=== PATIENT | female | born 2000 | race Caucasian/White ===

== ENCOUNTER → 2019-07-21 | Outpatient (CLI) | payer OTHER ==
[~2019-07-21] MED LIST: Cyclobenzaprine5 MG PO; HYDPAM25 PO; IBUP800 PO; LAMO100 PO; LATUDA40 MG PO; Naprosyn500 MG PO; OMEP40CA12 PO; PNV 29-1 TABLE1 EACH PO; Percocet 5-3251 EACH PO; TUMS500 MG PO
== END | disposition home or self-care (01) ==
LOC: LAB SHORT 18:00 → LAB 18:00
DX: Z34.83 Encounter for supervision of other normal pregnancy, third trimester (principal); P05.10 Newborn small for gestational age, unspecified weight
CPT/HCPCS: 87086

== ENCOUNTER 2019-07-30 17:28 | Inpatient (IN) | payer OTHER ==
[~2019-07-30] VITALS: Ht 157.5 cm; Wt 100.5 kg
[~2019-07-30 17:28] MED LIST changes: -IBUP800 PO; -PNV 29-1 TABLE1 EACH PO; -Percocet 5-3251 EACH PO; -TUMS500 MG PO
[2019-07-30] MEDS ORDERED: PNV 29-1 TABLE1 EACH PO (18:13)
[2019-07-30] MEDS ORDERED: TUMS500 MG PO (18:14)
[2019-07-30 18:24] LABS: BASOPHILS ABSOLUTE AUTO 0.03 K/mm3 (0.00-0.23); BASOPHILS PERCENT AUTO 0 % (0-2); EOSINOPHILS PERCENT AUTO 0 % (0-6); Hematocrit 30.3 % (33.0-51.0); Hemoglobin 9.8 g/dL (11.5-16.0); IMMATURE GRAN ABSOLUTE AUTO 0.02 K/mm3 (0.00-0.10); IMMATURE GRAN PERCENT AUTO 0 % (0-1); LYMPHOCYTES ABSOLUTE AUTO 1.16 K/mm3 (0.84-5.20); LYMPHOCYTES PERCENT AUTO 13 % (21-46); MONOCYTES ABSOLUTE AUTO 0.54 K/mm3 (0.16-1.47); MONOCYTES PERCENT AUTO 6 % (4-13); Mean Corpuscular HGB 28.4 pg (26.0-34.0); Mean Corpuscular HGB Conc 32.3 g/dL (31.5-36.5); Mean Corpuscular Volume 88 fL (80-100); Mean Platelet Volume 10.1 fL (9.1-12.4); NEUTROPHILS ABSOLUTE AUTO 7.18 K/mm3 (1.96-9.15); NEUTROPHILS PERCENT AUTO 81 % (41-73); Platelet Count 237 K/mm3 (150-400); RDW Coefficient Variation 14.7 % (11.7-14.2); RDW Standard Deviation 46.6 fL (35.1-46.3); Red Blood Cell Count 3.45 M/mm3 (3.80-5.20); White Blood Cell Count 8.93 K/mm3 (4.00-11.30)
--- NOTE | 2019-07-31 00:06 | NUR ---
PT C/O DISCOMFORT FROM IV IN HER HAND. COBAN IS REMOVED AND IV SITE IS WNL. PT DECLINES OFFER TO CHANGE IV SITES. IV SITE ON UPPER L ARM DRESSING REPLACED.
[2019-07-31 20:50] LABS: PCO2 Cord - Arterial 62.1 mmHg (40-50); PCO2 Cord - Venous 51.7 mmHg (40-50); PO2 Cord - Arterial < 13 mmHg (16-20); PO2 Cord - Venous 23.6 mmHg (28-32); pH Cord - Arterial 7.25 (7.28-7.35); pH Umbilical Cord - Venous 7.29 (7.26-7.35)
--- NOTE | 2019-07-31 20:54 | NUR ---
07/31/192053 Adali Saeed PT ARRIVED TO OR WITH EPIDURAL IN PLACE. EPIDURAL WAS DOSED PER DR SR. PT STILL NOTED SHAPRNESS WITH TESTING AND THUS CASE WAS CONVERED TO A GENERAL. PT ARRIVAL WITH A GUTIERREZ CATH IN PLACE. 2032-BABY GIRL BORN. SEE OB RN'S NURSES NOTES REGARDING SCORES. CORD BLOOD WITH SENT WITH KARTIK LINDSAY RN. CORD SEGMENT SENT ON ICE WITH MEGHA VAZQUEZ.
[2019-08-01 05:24] LABS: Hematocrit 30.2 % (33.0-51.0); Hemoglobin 9.7 g/dL (11.5-16.0); Mean Corpuscular HGB 28.4 pg (26.0-34.0); Mean Corpuscular HGB Conc 32.1 g/dL (31.5-36.5); Mean Corpuscular Volume 88 fL (80-100); Mean Platelet Volume 10.4 fL (9.1-12.4); Platelet Count 241 K/mm3 (150-400); RDW Coefficient Variation 14.6 % (11.7-14.2); Red Blood Cell Count 3.42 M/mm3 (3.80-5.20); White Blood Cell Count 23.29 K/mm3 (4.00-11.30)
--- NOTE | 2019-08-01 12:11 | NUR ---
SOCIAL HISTORY WHEN INTRODUCED TO THE VISITORS IN PTS ROOMS BREANNA IS INTRODUCED THE FATHER OF THE BABY, RAFAL THE FEMALE IN THE ROOM IS INTRODUCE A SISTER TO THE PT. RAFAL IS LEGALLY TO BREANNA. WHEN ASKING PT IF SHE IS LEGALLY TO BREANNA SHE STATES THAT SHE IS NOT. THE 9 MONTH INFANT OF TONJA IS ALSO INTRODUCE TO THE PATIENTS A SISTER. WHEN ALL VISITORS HAVE LEFT THE ROOM I ASKED THE PT IF SHE FELT SAFE IN THIS RELATIONSHIP. PATIENT STATES THAT SHE DOES FEEL SAFE AND FEELS THOUGH SHE COULD LEAVE AT ANY POINT IF SHE WANTED TO. PT STATES FEELING ANXIOUS AND STRESSED SHE DOES NOT LIKE BEING IN THE HOSPITAL. PT STATES THAT SHE TAKES BREAKTHROUGH ANXIETY MEDICATION PRN AT HOME. WILL CALL MD TO OBTAIN ORDERS FOR ANXIETY MEDICATION
--- NOTE | 2019-08-01 15:59 | NUR ---
All trash and dirty linen removed from room at this time. fresh ice water.
[2019-08-02] MEDS ORDERED: Percocet 5-3251 EACH PO (08:59)
[2019-08-02] MEDS ORDERED: IBUP800 PO (08:59)
--- NOTE | 2019-08-02 11:30 | NUR ---
DISCHARGE DISCHARGE TEACHING COMPLETED WITH PATIENT AND BOTH SIGNIFICANT OTHERS, ALL VERBALIZE UNDERSTANDING AND HAVE NO FURTHER QUESTIONS OR CONCERNS. PT DISCHARGED TO HOME AT 1139
== END 2019-08-02 11:35 | disposition home or self-care (01) | DRG 788 ==
LOC: BC 17:28 → OBS 17:28 → BC 17:42
PROVIDERS: Obstetrics & Gynecology; ADMIT Family Medicine
PROC: 3E0P7VZ Introduction of Hormone into Female Reproductive, Via Natural or Artificial Opening (ICD-10-PCS; 2019-07-30)
PROC: 10H07YZ Insertion of Other Device into Products of Conception, Via Natural or Artificial Opening (ICD-10-PCS; 2019-07-31)
PROC: 10D00Z1 Extraction of Products of Conception, Low, Open Approach (ICD-10-PCS; principal; 2019-07-31 19:00)
PROC: 3E0234Z Introduction of Serum, Toxoid and Vaccine into Muscle, Percutaneous Approach (ICD-10-PCS; 2019-08-02)
DX: O48.0 Post-term pregnancy (principal); O76 Abnormality in fetal heart rate and rhythm complicating labor and delivery; O62.0 Primary inadequate contractions; Z3A.40 40 weeks gestation of pregnancy; Z37.0 Single live birth; O77.0 Labor and delivery complicated by meconium in amniotic fluid; Z23 Encounter for immunization
CPT/HCPCS: 36415; 51702; 82803; 85025; 85027; 88307; 90471; J0330; J0690; J1100; J1885; J2001; J2210; J2370; J2405; J2590; J2704; J2710; J2765; J3010; J3105; J7120

== ENCOUNTER → 2024-11-16 | Outpatient (CLI) | payer OTHER ==
[~2024-11-16] MED LIST changes: +IBUP800 PO; +PNV 29-1 TABLE1 EACH PO; +Percocet 5-3251 EACH PO; +TUMS500 MG PO
[2024-11-16 09:52] LABS: Source, Urine Clean Catch
[2024-11-16 13:21] LABS: Appearance, Urine Hazy (Clear); Bilirubin, Urine Neg (Neg); Blood, Urine Neg (Neg); Color, Urine Yellow (P-Yellow); Glucose Qualitative, Urine Neg (Neg); Ketones, Urine Neg (Neg); Leukocyte Esterase, Urine 2+ (Neg); Nitrite, Urine Neg (Neg); Protein, Urine 1+ (Neg); Urobilinogen, Urine NORM (Normal)
[2024-11-16 13:37] LABS: Mucus Light (0-Heavy); Squamous Epithelial Cells Many /hpf (Few)
[2024-11-16 13:38] LABS: Amorphous Light (0-Heavy); Bacteria Many /hpf; Red Blood Cells, Urine 0-2 /hpf (0-2); White Blood Cells, Urine 25-50 /hpf (0-5)
== END ==
LOC: LAB SHORT 09:50 → LAB 09:50
PROVIDERS: Advanced Practice Midwife
DX: Z87.440 Personal history of urinary (tract) infections (principal)
CPT/HCPCS: 81001; 87077; 87086; 87186

== ENCOUNTER → 2024-11-18 | Outpatient (CLI) | payer OTHER | END | disposition home or self-care (01) | LOC: LAB 10:22 → LAB SHORT 10:22 | DX: O09.93 Supervision of high risk pregnancy, unspecified, third trimester (principal) | CPT/HCPCS: 87081; 87150 ==

== ENCOUNTER 2024-11-25 14:09 | Inpatient (IN) | payer OTHER ==
[~2024-11-25] VITALS: Ht 157.5 cm; Wt 131.8 kg
[2024-11-25] VITALS (39 sets, daily range): BP systolic 127–189; BP diastolic 63–114
[2024-11-25 14:54] LABS: BASOPHILS ABSOLUTE AUTO 0.04 K/mm3 (0.00-0.23); BASOPHILS PERCENT AUTO 1 % (0-2); EOSINOPHILS ABSOLUTE AUTO 0.02 K/mm3 (0.00-0.68); EOSINOPHILS PERCENT AUTO 0 % (0-6); Hematocrit 27.1 % (33.0-51.0); Hemoglobin 8.9 g/dL (11.5-16.0); IMMATURE GRAN ABSOLUTE AUTO 0.04 K/mm3 (0.00-0.10); IMMATURE GRAN PERCENT AUTO 1 % (0-1); LYMPHOCYTES ABSOLUTE AUTO 1.27 K/mm3 (0.84-5.20); LYMPHOCYTES PERCENT AUTO 15 % (21-46); MONOCYTES ABSOLUTE AUTO 0.52 K/mm3 (0.16-1.47); MONOCYTES PERCENT AUTO 6 % (4-13); Mean Corpuscular HGB 26.7 pg (26.0-34.0); Mean Corpuscular HGB Conc 32.8 g/dL (31.5-36.5); Mean Corpuscular Volume 81 fL (80-100); Mean Platelet Volume 11.3 fL (9.1-12.4); NEUTROPHILS ABSOLUTE AUTO 6.69 K/mm3 (1.96-9.15); NEUTROPHILS PERCENT AUTO 78 % (41-73); Platelet Count 218 K/mm3 (150-400); RDW Coefficient Variation 14.7 % (11.7-14.2); RDW Standard Deviation 42.9 fL (35.1-46.3); Red Blood Cell Count 3.33 M/mm3 (3.80-5.20); White Blood Cell Count 8.58 K/mm3 (4.00-11.30)
[2024-11-25] MEDS ORDERED: Labetalol HCL 5 MG/ML 4ML Injection (Single Dose) ONE (15:09)
[2024-11-25] MEDS ORDERED: CeFAZolin Sodium 3,000 MG in NS 100 ML IV SCH (15:10)
[2024-11-25] MEDS ORDERED: Azithromycin 500 MG in NS 250 ML IV SCH (15:10)
[2024-11-25] MEDS ORDERED: Magnesium Sulf 2 GM/Water 50ML 50 ML IV ONE (15:11)
[2024-11-25] MEDS ORDERED: Magnesium Sulfate 500 ML IV ONE (15:11)
[2024-11-25] MEDS ORDERED: Magnesium Sul 4 GM/Water100 ML 100 ML IV ONE ×2 (15:12→15:15)
[2024-11-25] MEDS ORDERED: Labetalol HCL 5 MG/ML 4ML Injection (Single Dose) IV ONE (15:15)
[2024-11-25] MEDS ORDERED: Calcium Gluconate 0.465 mEq/ml 10 ml Vial IV PRN (15:15)
[2024-11-25] MEDS ORDERED: Magnesium Sulf 2 GM/Water 50ML 50 ML IV SCH (15:15)
[2024-11-25] MEDS ORDERED: Labetalol HCL 5 MG/ML 4ML Injection (Single Dose) IV PRN ×3 (15:15→23:15)
[2024-11-25] MEDS ORDERED: Magnesium Sulfate 500 ML IV SCH (15:15)
[2024-11-25] MEDS ORDERED: Lactated Ringer's 1,000 ML IV SCH ×2 (15:15→17:35)
[2024-11-25 15:16] LABS: Albumin, Blood 2.2 g/dL (3.4-5.0); Albumin/Globulin Ratio 0.6 (0.8-1.8); Bilirubin, Total 0.3 mg/dL (0.1-1.0); Bun/Creatinine Ratio 12.5 (12.0-20.0); Calcium, Blood 8.5 mg/dL (8.5-10.1); Creatinine, Blood 0.56 mg/dL (0.40-1.00); Globulin, Blood 3.9 g/dL (2.2-4.0); Potassium, Blood 3.9 mmol/L (3.5-5.5); Total Protein, Blood 6.1 g/dL (6.4-8.2)
--- NOTE | 2024-11-25 15:16 | NUR ---
OR NOTIFIED OF NEED FOR SURG CREW TO SCRUB AND CIRCULATE, [employer] WILL SEND A CREW AND FIND ANESTHESIA
[2024-11-25] MEDS ORDERED: Citric Acid/Sodium Citrate 30 ML BTL PO SCH (15:25)
[2024-11-25] MEDS ORDERED: Metoclopramide HCl 5MG / ML 2ML Vial IV SCH (15:25)
[2024-11-25] MEDS ORDERED: Metoclopramide HCl 5MG / ML 2ML Vial ONE (15:30)
[2024-11-25] MEDS ORDERED: Citric Acid/Sodium Citrate 30 ML BTL ONE (15:30)
[2024-11-25] MEDS ORDERED: Oxytocin 10 Unit / ML Vial ONE ×2 (15:34→16:31)
[2024-11-25] MEDS ORDERED: FentaNYL Citrate 50 MCG/ML 2 ML Injection ONE (15:37)
[2024-11-25] MEDS ORDERED: [UNRECOGNIZED DRUG - OTHER] EPI ONE (15:40)
[2024-11-25 15:41] LABS: BASOPHILS ABSOLUTE AUTO 0.03 K/mm3 (0.00-0.23); BASOPHILS PERCENT AUTO 0 % (0-2); EOSINOPHILS ABSOLUTE AUTO 0.01 K/mm3 (0.00-0.68); EOSINOPHILS PERCENT AUTO 0 % (0-6); Hematocrit 27.6 % (33.0-51.0); Hemoglobin 9.1 g/dL (11.5-16.0); IMMATURE GRAN ABSOLUTE AUTO 0.04 K/mm3 (0.00-0.10); IMMATURE GRAN PERCENT AUTO 0 % (0-1); LYMPHOCYTES ABSOLUTE AUTO 1.35 K/mm3 (0.84-5.20); LYMPHOCYTES PERCENT AUTO 15 % (21-46); MONOCYTES ABSOLUTE AUTO 0.61 K/mm3 (0.16-1.47); MONOCYTES PERCENT AUTO 7 % (4-13); Mean Corpuscular HGB 27.1 pg (26.0-34.0); Mean Corpuscular Volume 82 fL (80-100); Mean Platelet Volume 11.2 fL (9.1-12.4); NEUTROPHILS ABSOLUTE AUTO 6.87 K/mm3 (1.96-9.15); NEUTROPHILS PERCENT AUTO 77 % (41-73); Platelet Count 205 K/mm3 (150-400); RDW Coefficient Variation 14.8 % (11.7-14.2); RDW Standard Deviation 43.5 fL (35.1-46.3); Red Blood Cell Count 3.36 M/mm3 (3.80-5.20); White Blood Cell Count 8.91 K/mm3 (4.00-11.30)
[2024-11-25] MEDS ORDERED: Ondansetron HCl 2 MG / ML 2ML Vial ONE (15:56)
[2024-11-25] MEDS ORDERED: Tranexamic Acid 100 ML IV ONE (16:02)
[2024-11-25] MEDS ORDERED: Phenylephrine HCl 100 MCG/ML-NS 10MLSYR (1MG/10ML) ONE (16:50)
[2024-11-25 17:06] LABS: PCO2 Cord - Arterial 56.7 mmHg (40-50); PCO2 Cord - Venous 48.3 mmHg (40-50); PO2 Cord - Arterial < 14.0 mmHg (16-20); PO2 Cord - Venous 24.2 mmHg (28-32); pH Cord - Arterial 7.22 (7.28-7.35)
--- NOTE | 2024-11-25 17:17 | NUR ---
11/25/24 1717 Carol Nam BABY A AND BABY B CORD GIVEN TO RT. URINE SAMPLE AND BABY A AND BABY B CORD BLOOD GIVEN TO L & D RN
[2024-11-25 17:18] LABS: PCO2 Cord - Venous 47.9 mmHg (40-50)
[2024-11-25] MEDS ORDERED: Magnesium Hydroxide Conc 10 ML UDC PO PRN (17:35)
[2024-11-25] MEDS ORDERED: Metoclopramide HCl 10 MG Tab PO PRN (17:35)
[2024-11-25] MEDS ORDERED: Simethicone 80 MG Chew PO PRN (17:35)
[2024-11-25] MEDS ORDERED: Promethazine HCl 25 MG Tab PO PRN (17:40)
[2024-11-25] MEDS ORDERED: Lanolin Cream TOP PRN (17:40)
[2024-11-25] MEDS ORDERED: Acetaminophen 500 MG Tab PO PRN (17:40)
[2024-11-25] MEDS ORDERED: OXYTOCIN/RINGER'S LACTATE 500 ML IV SCH (17:40)
[2024-11-25] MEDS ORDERED: Carboprost Tromethamine 250 MCG/ML 1ML Amp IM PRN (17:40)
[2024-11-25] MEDS ORDERED: DiphenhydrAMINE HCL 25 MG Cap PO PRN (17:40)
[2024-11-25] MEDS ORDERED: OxyCODONE HCL 5 MG TAB PO PRN ×2 (17:45→22:40)
[2024-11-25] MEDS ORDERED: Misoprostol 200 MCG Tab PR PRN (17:45)
[2024-11-25] MEDS ORDERED: Ondansetron HCl 2 MG / ML 2ML Vial IV PRN (17:45)
[2024-11-25] MEDS ORDERED: Ketorolac Tromethamine 30mg Vial IV SCH (18:00)
[2024-11-25 20:21] LABS: Source, Urine Foley catheter
[2024-11-25 20:34] LABS: Appearance, Urine Clear (Clear); Bilirubin, Urine Neg (Neg); Blood, Urine Neg (Neg); Color, Urine Yellow (P-Yellow); Glucose Qualitative, Urine Neg (Neg); Ketones, Urine Neg (Neg); Leukocyte Esterase, Urine 1+ (Neg); Nitrite, Urine Neg (Neg); Protein, Urine 1+ (Neg); Urobilinogen, Urine NORM (Normal); pH, Urine 6.5 (5.0-8.0)
[2024-11-25 20:45] LABS: Bacteria Few /hpf; Red Blood Cells, Urine 0-2 /hpf (0-2); Squamous Epithelial Cells Mod /hpf (Few); White Blood Cells, Urine 0-2 /hpf (0-5)
[2024-11-25] MEDS ORDERED: Docusate Sodium 100 MG Cap PO SCH (21:00)
[2024-11-26] VITALS (29 sets, daily range): BP systolic 132–194; BP diastolic 63–105
[2024-11-26] MEDS ORDERED: Ibuprofen 400 MG Tab PO SCH
--- NOTE | 2024-11-26 02:34 | NUR ---
PT STATES SHE WAS MOVING HER ARM WHEN THE BP CUFF WENT OFF. BP REPEATED AND RESULT IS 194/88. WILL REPEAT IN 15 MIN AND FOLLOW PROTOCOL IF REMAINS IN SEVERE RANGE.
--- NOTE | 2024-11-26 05:45 | NUR ---
PT IS UP TO SCN TO VISIT TWIN VIA WC. PT TOLERATES THIS WELL.
[2024-11-26 06:20] LABS: BASOPHILS ABSOLUTE AUTO 0.03 K/mm3 (0.00-0.23); BASOPHILS PERCENT AUTO 0 % (0-2); EOSINOPHILS ABSOLUTE AUTO 0.01 K/mm3 (0.00-0.68); EOSINOPHILS PERCENT AUTO 0 % (0-6); Hematocrit 26.5 % (33.0-51.0); Hemoglobin 8.4 g/dL (11.5-16.0); IMMATURE GRAN ABSOLUTE AUTO 0.05 K/mm3 (0.00-0.10); IMMATURE GRAN PERCENT AUTO 0 % (0-1); LYMPHOCYTES ABSOLUTE AUTO 0.96 K/mm3 (0.84-5.20); LYMPHOCYTES PERCENT AUTO 7 % (21-46); MONOCYTES ABSOLUTE AUTO 0.77 K/mm3 (0.16-1.47); MONOCYTES PERCENT AUTO 5 % (4-13); Mean Corpuscular HGB 25.9 pg (26.0-34.0); Mean Corpuscular HGB Conc 31.7 g/dL (31.5-36.5); Mean Corpuscular Volume 82 fL (80-100); Mean Platelet Volume 11.1 fL (9.1-12.4); NEUTROPHILS PERCENT AUTO 88 % (41-73); Platelet Count 220 K/mm3 (150-400); RDW Coefficient Variation 14.6 % (11.7-14.2); RDW Standard Deviation 42.7 fL (35.1-46.3); Red Blood Cell Count 3.24 M/mm3 (3.80-5.20); White Blood Cell Count 14.62 K/mm3 (4.00-11.30)
--- NOTE | 2024-11-26 07:03 | NUR ---
PT'S SO GOES HOME FOR THE NIGHT AROUND 2100 AND TWIN B IS TAKEN TO NURSERY SO PT CAN SLEEP. PAIN IS MANAGED WITH TORADOL, TYLENOL AND OXYCODONE AND PT TOLERATES REPOSITIONING AND DANGLE, STAND, PIVOT TO TO VISIT TWIN A IN [facility] VERY WELL. PT ATTEMPTS TO BREASTFEED TWIN B, BUT HE DOES NOT LATCH, SO SHE IS ABLE TO EXPRESS UP TO 5ML OF COLOSTRUM AT A TIME FOR FEEDS. PT IS APPROPRIATE WITH HER CARE OF BABY AND CONCERNED ABOUT TWIN A'S PROGRESS IN THE NURSERY. REPORT IS GIVEN TO TALIA MCKEON.
--- NOTE | 2024-11-26 08:30 | NUR ---
CPS NOTE SHY MCDANIELS, CPS WORKER, ASSIGNED TO FAMILY CASE PRIOR TO ARRIVAL AT HOSPITAL HERE TO SEE PT. DID NOT SET UP SAFETY PLAN OR DISCHARGE PLAN WITH PT HE IS NOT CURRENTLY,NEWLY ASSIGNED WORKER FOR THIS /DELIVERY. THERE WILL BE ANOTHER CPS WORKER HERE THIS AM FOR INTAKE AND ASSESSMENT.
--- NOTE | 2024-11-26 08:40 | NUR ---
Magnesium Sulfate restarted at 2gm/hr per MD order for additional 12 hour infusion.
[2024-11-26] MEDS ORDERED: Prenatal Vit/FE Fumarate/FA 1 Tab PO SCH (09:00)
--- NOTE | 2024-11-26 09:47 | NUR ---
CPS NOTE ATUL GASTELUM, CPS SATELLITE MANAGER, HERE TO SEE PT. INTRODUCED HIMSELF AFTER SPEAKING WITH RN ABOUT HX AND PT AND SO BEHAVIOR IN ROOM SINCE ARRIVING ON UNIT.
[2024-11-26] MEDS ORDERED: Labetalol HCL 100 MG TAB PO SCH ×2 (10:45→20:00)
[2024-11-26] MEDS ORDERED: Labetalol HCL 5 MG/ML 4ML Injection (Single Dose) IV ONE (11:50)
--- NOTE | 2024-11-26 14:00 | NUR ---
CPS NOTE ED NIRAV OUT OF ROOM AFTER SPEAKING WITH PT WITH HER WILDLIFE CONSERVATION PROFESSOR PRESENT. ED REPORTED TO STAFF AT NURSES STATION THAT HE WAS GOING TO COURT THIS AFTERNOON AND WOULD BE BACK WITH A PLAN TOMORROW. NO RESTRICTIONS WHILE IN HOSPITAL UNTIL CPS RETURNS WITH SAFETY PLAN AND FUTHER ASSESSMENT TOMORROW.
--- NOTE | 2024-11-26 20:35 | NUR ---
MAGNESIUM SULFATE TURNED OFF AT 2033.
[2024-11-27 01:32] VITALS: BP 140/68
[2024-11-27 03:44] VITALS: BP 146/69
[2024-11-27 07:27] VITALS: BP 138/69
[2024-11-27] MEDS ORDERED: NIFEdipine 30 MG TabCR PO SCH (09:00)
[2024-11-27 11:34] VITALS: BP 137/64
--- NOTE | 2024-11-27 14:48 | NUR ---
1441 ATUL GASTELUM WORKING FOR CHILD WELFARE CAME IN AND REMOVED BOTH TWIN A AND TWIN B FROM PARENTS AND TOOK THEM INTO CUSTODY AT THIS TIME. PARENT'S HAVE A COURT DATE THEY ARE DISCUSSING AT THIS TIME.
[2024-11-27 15:00] VITALS: BP 136/78
--- NOTE | 2024-11-27 15:43 | NUR ---
PT HAD BOTH BABIES REMOVED AT 1400 BY CHILD WELFARE. PT DECIDED TO GO HOME AND BE DISCHARGED. DISCHARGE INSURUCTIONS SIGNED.
== END 2024-11-27 15:36 | disposition home or self-care (01) | DRG 784 ==
LOC: BC 14:09 → OBS 14:09 → BC 15:12
PROVIDERS: ADMIT Obstetrics & Gynecology
PROC: 0UB70ZZ Excision of Bilateral Fallopian Tubes, Open Approach (ICD-10-PCS; 2024-11-25)
PROC: 10D00Z1 Extraction of Products of Conception, Low, Open Approach (ICD-10-PCS; principal; 2024-11-25 15:00)
DX: O34.211 Maternal care for low transverse scar from previous cesarean delivery (principal); N39.0 Urinary tract infection, site not specified; O23.43 Unspecified infection of urinary tract in pregnancy, third trimester; O09.93 Supervision of high risk pregnancy, unspecified, third trimester; O14.14 Severe pre-eclampsia complicating childbirth; Z3A.40 40 weeks gestation of pregnancy; O30.043 Twin pregnancy, dichorionic/diamniotic, third trimester; Z3A.37 37 weeks gestation of pregnancy; Z37.2 Twins, both liveborn; O99.214 Obesity complicating childbirth; E66.01 Morbid (severe) obesity due to excess calories
CPT/HCPCS: 36415; 59025; 80053; 81001; 82570; 82803; 83615; 84156; 85025; 86850; 86900; 86901; 86923; 87086; 88302; 99215; A9270; J0690; J1885; J2371; J2405; J2590; J2765; J3010; J3475; J7120

== ENCOUNTER → 2024-11-25 | Outpatient (CLI) | payer OTHER ==
[2024-11-25 19:32] LABS: Creatinine, Urine Random 34.9 mg/dL (27.00-270.00); Protein, Urine Random 19.7 mg/dL (0.0-11.9); Protein/Creat Ratio, Ur Random 0.6
== END ==
LOC: LAB SHORT 11:30
PROVIDERS: Obstetrics & Gynecology
DX: O09.93 Supervision of high risk pregnancy, unspecified, third trimester (principal)
CPT/HCPCS: 82570; 84156

== ENCOUNTER → 2025-07-29 | Outpatient (CLI) | payer OTHER | LOC: LAB 19:28 → LAB SHORT 19:28 | DX: R10.9 Unspecified abdominal pain (principal) | CPT/HCPCS: 87077; 87086; 87186 ==

== ENCOUNTER → 2025-08-17 | Outpatient (CLI) | payer OTHER | LOC: LAB SHORT 18:40 → LAB 18:40 → LAB SHORT 08-18 09:48 | DX: R31.9 Hematuria, unspecified (principal) | CPT/HCPCS: 87086 ==